=== PATIENT | male | born 2000 | race Caucasian/White ===

== ENCOUNTER 2022-04-01 02:13 | Emergency (ER) | payer MEDICAID, SELFPAY ==
[2022-04-01 02:19] VITALS: BP 148/91; PULSE 76; RESP 16; TEMP 36.7; O2SAT 96; BMI 30.8
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
[2022-04-01 03:33] VITALS: RESP 16
== END 2022-04-01 03:30 | disposition home or self-care (01) ==
PROVIDERS: Emergency Provider Emergency Medicine; PCP Family Medicine
DX: S06.0XAA Concussion with loss of consciousness status unknown, initial encounter (principal); S00.03XA Contusion of scalp, initial encounter; S10.93XA Contusion of unspecified part of neck, initial encounter; S00.83XA Contusion of other part of head, initial encounter; V89.2XXA Person injured in unspecified motor-vehicle accident, traffic, initial encounter
CPT/HCPCS: 70450; 72125; 99284